=== PATIENT | male | born 1995 | race Caucasian/White ===

== ENCOUNTER 2021-02-10 11:48 | Emergency (ER) | payer BC, SELFPAY ==
--- NOTE | ~2021-02-10 | CT_ITS ---
EXAMINATION: CT abdomen pelvis w con EXAM DATE: 02/10/2021 15:11 INDICATION: Low back, abdominal pain, nausea, hematuria. TECHNIQUE: Spiral CT of the abdomen and pelvis was performed following intravenous injection of 100 m L Omnipaque 350. Axial, coronal and sagittal images of the abdomen and pelvis were reviewed. The do se-length product (DLP) for this examination was 242.99 mGy-cm. The exposure was tailored according to patient size (auto mA exposure control), and iterative reconstruction (ASIR) was used as additiona l dose reduction technique. There is no prior study for comparison. FINDINGS: There are regions of heterogeneous enhancement within both kidneys, appearance most consist ent with bilateral pyelonephritis. Vasculitis would be a less likely consideration. Please correlate with urinalysis. No hydronephrosis or obstructive nephropathy. The liver, spleen, adrenal glands and pancreas are unremarkable. Gallbladder is unremarkable. No bi liary obstruction. The prostate is unremarkable. The bladder is unremarkable. There is no retroper itoneal or pelvic lymphadenopathy. Small umbilical fat-containing hernia. The appendix is normal. The stomach and small bowel are unremarkable. There is expected amount of c olonic stool. No free intraperitoneal gas. The heart is normal in size. There are no pericardial or pleural effusions. The lung bases are unremarkable. There are no osteoblastic or osteolytic les ions identified. IMPRESSION: Regions of heterogeneous bilateral renal enhancement most likely acute pyelonephritis; co rrelate with urinalysis. Reviewed, dictated and finalized at location B. IMPRESSION: Regions of heterogeneous bilateral renal enhancement most likely ac kinjal pyelonephritis; correlate with urinalysis.
[2021-02-10 11:59] VITALS: BP 161/87; PULSE 94; RESP 20; TEMP 36.6; O2SAT 100
[2021-02-10 12:35] LABS: Basophils Absolute Auto 0.1 K/mm3 (0.0-0.1); Basophils Percent Auto 0.5 % (0.2-1.2); Eosinophils Percent Auto 0.2 % (0-4.4); Hematocrit 44.4 % (42.0-52.0); Hemoglobin 15.2 g/dL (14.0-18.0); Immature Granulocyte Absolute 0.05 K/mm3 (0.00-0.031); Immature Granulocyte Percent A 0.4 % (0-0.5); Lymphocytes Absolute Auto 0.85 K/mm3 (0.9-3.2); Lymphocytes Percent Auto 7.3 % (18.3-44.2); Mean Corpuscular HGB Conc 34.2 g/dl (32-36); Mean Corpuscular Hemoglobin 30.2 pg (26-34); Mean Corpuscular Volume 88.3 fl (80-100); Mean Platelet Volume 9.7 fl (7.4-10.4); Monocytes Absolute Auto 1.2 K/mm3 (0.1-0.6); Monocytes Percent Auto 10.3 % (2.6-8.5); Neutrophils Absolute Auto 9.5 K/mm3 (1.3-6.7); Neutrophils Percent Auto 81.3 % (45.5-73.1); Platelet Count Result 257 k/mm3 (150-375); Red Blood Count 5.03 M/mm3 (4.6-6.20); Red Cell Distribution Width 11.7 % (11.5-14.5); White Blood Count 11.7 K/mm3 (4.5-10.0)
[2021-02-10 12:52] LABS: Anion Gap 11 mmol/L (8-16); Blood Urea Nitrogen 18 mg/dL (9-20); Calcium 9.9 mg/dL (8.4-10.2); Carbon Dioxide 29 mmol/L (22-30); Chloride 103 mmol/L (98-107); Estimated CRCL calculation 82 ml/min; Estimated Glomerular Filt Rate > 60; Glucose 103 mg/dL (65-110); Sodium 143 mmol/L (137-145)
[2021-02-10 12:59] LABS: Add Urine Microscopic? NO; Appearance Urine Clear (Clear); Bilirubin Urine Negative (Negative); Blood Urine Negative (Negative); Color Urine Straw (Yellow); Glucose Urine UA Negative (Negative); Ketones Urine Negative (Negative); Leukocyte Esterase Ur Negative LEU/UL (Negative); Nitrate Urine Negative (Negative); Protein Urine Negative (Negative); Specific Grav Ur 1.009 (1.001-1.035); Urobilinogen Urine Negative mg/dL (<2.0)
--- NOTE | 2021-02-10 13:58 | ED.GENADULT ---
HPI - General Adult General Chief complaint: Back Pain/Injury Stated complaint: R FLANK/ABD PAIN Time Seen by Provider: 02/10/21 13:54 Source: RN notes reviewed History of Present Illness HPI narrative: Patient presents emergency department from urgent care for abdominal and back pain. Patient states symptoms began approximately midnight last night states he was sitting in his chair his computer began to have bilateral lower back pain. States that since this time he has had pain in his lower abdomen as well states he went to the urgent care this morning and was referred to the ER for further evaluation he states he has had 1 episode nausea vomiting states he took Tylenol last night has not taken any other medication today denies any fevers or chills chest pain shortness of breath diarrhea or any other symptoms Related Data Allergies Allergy/AdvReac Type Severity Reaction Status Date / Time No Known Allergies Allergy Verified 02/10/21 14:50 Review of Systems Review of Systems: Gen.: Denies fevers or chills ENT: Denies congestion Respiratory: Denies shortness of breath or cough CV: Denies chest pain or palpitations GI: See HPI denies burning, urgency, frequency or hematuria Musculoskeletal: Denies back pain or muscle pain Neuro: Denies numbness, tingling, weakness or focal weakness Skin: Denies rash Except as documented, all other systems reviewed and negative PMFSH Past Medical History Medical History (Updated 02/10/21 @ 16:04 by Allan Rice DO) Patient denies significant medical history Social History Social History (Updated 02/10/21 @ 14:00 by Allan Rice DO) Smoking status: Never smoker Exam Narrative: APPEARANCE: No acute distress, nontoxic, resting in bed HEENT: Normocephalic, atraumatic, OMM RESPIRATORY: No respiratory distress, clear to auscultation bilaterally with no rhonchi wheezing or rales CARDIOVASCULAR: RRR s murmur ABDOMINAL: Soft nondistended tender palpation right lower quadrant no tenderness in left lower quadrant left upper quadrant right upper quadrant no rebound or guarding Back: No midline thoracic lumbar tenderness palpation MUSCULOSKELETAl: Moves all extremities. No clubbing, cyanosis or edema. NEURO: Awake and alert. Following commands, speech normal, no focal deficits SKIN:: Warm, dry. Normal Color PSYCHIATRIC: Normal affect/mood Course Course Emergency Course: Discussed with Dr. Colin CT scan results. States that bilateral he has been is consistent with pyelonephritis does not feel these are embolic in nature Discussed Dr. Coley presentation work-up he reviewed the CT scan at this time recommends treating patient with Bactrim for 10 days with follow-up as an outpatient Patient states that they are feeling much better at this time. States abdominal pain has resolved. Repeat abdominal exam shows the patient's abdomen to be soft and nontender. Discussed with patient results of workup and diagnosis. Discussed need for follow-up with primary care physician, reasons to return to the emergency department in proper use of medication. Patient understands and agrees to current treatment plan discussed with patient CT results and is need to follow-up with urology as an outpatient Vital Signs Vital signs: Vital Signs Temperature 97.9 F 02/10/21 11:59 Pulse Rate 94 02/10/21 11:59 Respiratory Rate 20 02/10/21 11:59 Blood Pressure 161/87 H 02/10/21 11:59 Pulse Oximetry 100 02/10/21 11:59 Temperature 97.9 F 02/10/21 11:59 Pulse Rate 76 02/10/21 14:43 Respiratory Rate 16 02/10/21 14:43 Blood Pressure 138/91 H 02/10/21 14:43 Pulse Oximetry 100 02/10/21 14:43 Medical Decision Making MDM Narrative Medical decision making narrative: Patient's abdomen is soft without significant pain or signs of surgical abdomen on serial exams. Lab and x-ray evaluations are reviewed and patient is felt to be a reasonable candidate for outpatient management. Patient
[2021-02-10] MEDS: SODIUM CHLORIDE 0.9% IV 1,000 ML 999 ML IV CONT (14:40)
[2021-02-10] MEDS: KETOROLAC 30 MG/ML VIAL (*BKC) IV PUSH (14:41)
[2021-02-10 14:43] VITALS: BP 138/91; PULSE 76; RESP 16; O2SAT 100
[2021-02-10 15:21] LABS: Alanine Aminotransferase 17 U/L (4-50); Albumin Level 5.2 g/dL (3.5-5.1); Alkaline Phosphatase 92 U/L (38-126); Aspartate Amino Transferase 29 U/L (17-59); Bilirubin,Total 0.8 mg/dL (0.2-1.3); Lipase 77 U/L (23-300)
[2021-02-10 17:02] VITALS: BP 117/84; PULSE 66; RESP 16; O2SAT 99
== END 2021-02-10 17:03 | disposition home or self-care (01) ==
PROVIDERS: Emergency Provider Emergency Medicine; PCP Family Medicine
DX: N10 Acute pyelonephritis (principal)
CPT/HCPCS: 36415; 74177; 80048; 80076; 81003; 83690; 85025; 96374; 99284; A9270; J1885; J7030; Q9967